=== PATIENT | female | born 1950 | race Caucasian/White ===

== ENCOUNTER 2017-03-06 03:54 | Emergency (ER) | payer MEDICARE ==
[2017-03-06] MEDS ORDERED: DELTASONE PO ONE (08:14)
[2017-03-06] MEDS ORDERED: BOOSTRIX IM ONE (08:14)
--- NOTE | 2017-03-06 08:19 | Emergency Department Report ---
ED General Adult HPI - General Chief complaint: Skin Rash Stated complaint: BLISTER ON LF ANKLE Time Seen by Provider: 03/06/17 08:05 Source: patient Mode of arrival: Ambulatory Limitations: No Limitations - History of Present Illness Initial comments: PT states 2 months ago, she had broken out in some blisters on her R foot, left foot and ankle and R hand. PT states she was seen at Urgent care and given bactrim and zrytec. PT states she was told to go to a cream dipper. PT has not followed up yet. PT states that she has been itching again for 2 weeks. PT states she had a blister on her L ankle that popped and now the site is swollen. PT states she woke up this morning and had a rash but the rash resolved. PT states no close contacts have a rash but she thinks this may be related to her best friend's dog. PT states the itching/ rash is always present and at it's worst after she is around the dog. pt denies flea or tick bites. MD Complaint: itching/rash Onset/Timin -: Gradual, week(s) Location: left, right, upper extremity, lower extremity Severity scale (0 -10): 3 Consistency: constant Improves with: none Worsens with: other (being around dog ) Associated Symptoms: denies other symptoms. denies: cough, nausea/vomiting, shortness of breath - Related Data Previous Rx's Medication Instructions Recorded Last Taken Type Cephalexin [Keflex] 500 mg PO Q6HR #40 capsule 03/06/17 Unknown Rx Sulfamethoxazole/Trimethoprim 1 each PO BID #20 tablet 03/06/17 Unknown Rx [Bactrim DS TAB] hydrOXYzine PAMOATE [Vistaril] 25 mg PO Q6HR PRN #12 capsule 03/06/17 Unknown Rx Allergies Allergy/AdvReac Type Severity Reaction Status Date / Time No Known Allergies Allergy Verified 03/06/17 04:11 ED Review of Systems ROS: Stated complaint: BLISTER ON LF ANKLE Other details as noted in HPI Comment: All other systems reviewed and negative Constitutional: denies: fever Respiratory: denies: cough Musculoskeletal: joint swelling (atraumatic ) Skin: rash, pruritus ED Past Medical Hx - Past Medical History Previous Medical History?: Yes Hx Hypertension: Yes - Surgical History Past Surgical History?: No - Social History Smoking Status: Current Every Day Smoker Substance Use Type: Alcohol - Medications Home Medications: Home Medications Medication Instructions Recorded Confirmed Last Taken Type Cephalexin [Keflex] 500 mg PO Q6HR #40 capsule 03/06/17 Unknown Rx Sulfamethoxazole/Trimethoprim 1 each PO BID #20 tablet 03/06/17 Unknown Rx [Bactrim DS TAB] hydrOXYzine PAMOATE [Vistaril] 25 mg PO Q6HR PRN #12 capsule 03/06/17 Unknown Rx ED Physical Exam - General Limitations: No Limitations General appearance: alert, in no apparent distress - Head Head exam: Present: atraumatic, normocephalic, normal inspection - ENT ENT exam: Present: normal exam, normal external ear exam - Neck Neck exam: Present: normal inspection, full ROM - Respiratory Respiratory exam: Present: normal lung sounds bilaterally. Absent: respiratory distress, chest wall tenderness - Cardiovascular Cardiovascular Exam: Present: regular rate, normal rhythm, normal heart sounds - GI/Abdominal GI/Abdominal exam: Present: soft - Extremities Exam Extremities exam: Present: normal capillary refill. Absent: pedal edema, calf tenderness - Expanded Lower Extremity Exam Left Knee exam: Present: normal inspection Lower Leg exam: Present: normal inspection, full ROM. Absent: tenderness, swelling Ankle exam: Present: full ROM, swelling (medial ankle has small scab with surrounding edema and mild erythema ). Absent: tenderness, laceration, ecchymosis - Back Exam Back exam: Present: normal inspection, full ROM - Neurological Exam Neurological exam: Present: alert, oriented X3, normal gait - Psychiatric Psychiatric exam: Present: normal affect, normal mood - Skin Skin exam: Present: warm, dry, erythema (mild), other (no rash to palms of hands or soles of feet). Absent: intact (pt has scabbed areas to L foot, L ankle, R hand. PT states the areas were blisters, no vesicles noted. ), rash, vesicles, ecchymosis ED Course Vital Signs 03/06/17 03/06/17 04:05 08:42 Temperature 97.9 F Pulse Rate 87 76 Respiratory 18 16 Rate Blood Pressure 150/91 162/86 [Right] O2 Sat by Pulse 99 96 Oximetry - Reevaluation(s) Reevaluation #1: 03/06/17 08:21 PT aware she will need to follow up with [facility] as previously instructed. PT advised to refrain from scratching as this can lead to skin trauma and cause infection. PT verbalizes understanding. PT also advised to avoid known triggers to itching and rash ( dog) - Pulse Oximetry Interpretation Digit-Finger Initial Pulse Oximetry Readin Actions Taken: none ED Medical Decision Making - Medical Decision Making PT c/o intermittent blisters and itching x 2 months. Seen at and given Bactrim and Zyrtec 2 months ago. PT states she was around her best friend's dog on Saturday and her itching worsened on Saturday. PT aware she will need to follow up with derm. Will update pt's TDap due to the fact she has multiple areas of broken skin. Will RX vistaril for itching and Bactrim/ Keflex for early cellulites to L ankle. One dose of prednisone given in ED for her itching. - Differential Diagnosis insect bite, urticiaria, cellulitis, allergy Critical Care Time: No Critical care attestation.: If time is entered above; I have spent that time in minutes in the direct care of this critically ill patient, excluding procedure time. ED Disposition Clinical Impression: Itching, Cellulitis of left ankle, Need for Tdap vaccination Disposition: DISCHARGED TO HOME OR SELFCARE Is pt being admited?: No Does the pt Need Aspirin: No Condition: Stable Instructions: Cellulitis (ED), Acute Rash (ED) Additional Instructions: Avoid dogs, as they tend to make your symptoms worse Follow up with [facility] Resource Specialist as previously instructed. No driving or ETOH after taking Vistaril finish all antibiotics Prescriptions: Cephalexin [Keflex] 500 mg PO Q6HR #40 capsule hydrOXYzine PAMOATE [Vistaril] 25 mg PO Q6HR PRN #12 capsule PRN Reason: Itching Sulfamethoxazole/Trimethoprim [Bactrim DS TAB] 1 each PO BID #20 tablet Referrals: DENIS SUAREZ MD [Primary Care Provider] - 3-5 Days Time of Disposition: 08:28
[2017-03-06 09:52] VITALS: BP 162/86
== END 2017-03-06 08:42 | disposition home or self-care (01) ==
LOC: ED 03:54
DX: L03.116 Cellulitis of left lower limb (principal); I10 Essential (primary) hypertension; F17.200 Nicotine dependence, unspecified, uncomplicated
CPT/HCPCS: 99282

== ENCOUNTER 2018-03-25 08:21 | Emergency (ER) | payer MEDICARE ==
[2018-03-25 09:32] LABS: Hematocrit 30.1 % (30.3-42.9); Hemoglobin 9.6 gm/dl (10.1-14.3); Mean Corpuscular HGB Conc 32 % (30-34); Mean Corpuscular Hemoglobin 29 pg (28-32); Mean Corpuscular Volume 92 fl (79-97); Platelet Count 565 K/mm3 (140-440); Red Blood Count 3.28 M/mm3 (3.65-5.03); Red Cell Distribution Width 35.5 % (13.2-15.2)
[2018-03-25 09:43] LABS: BUN/Creatinine Ratio 18; Blood Urea Nitrogen 9 mg/dL (7-17); Calcium 9.2 mg/dL (8.4-10.2); Hemolysis Index 5
[2018-03-25 10:29] LABS: Anisocytosis 3+; Hypochromasia 1+; Macrocytosis 1+; Platelet Estimate Consistent w Auto; Schistocytes Rare; Total Cells Counted 100
--- NOTE | 2018-03-25 10:47 | XRay Report ---
ROUTINE CHEST, TWO VIEWS: HISTORY: Shortness of breath. Mild cardiomegaly and pulmonary venous congestion are identified. The lungs are hyperinflated but clear. No evidence for pneumonia, pleural effusion or pneumothorax. IMPRESSION: Mild cardiomegaly and pulmonary venous congestion. COPD.
[2018-03-25] MEDS ORDERED: DUONEB *Not for PRN Use IH ONE ×2 (12:09→14:46)
[2018-03-25] MEDS ORDERED: DELTASONE PO ONE ×2 (12:10→14:37)
--- NOTE | 2018-03-25 12:18 | Emergency Department Report ---
HPI - General Chief Complaint: Dyspnea/Respdistress Time Seen by Provider: 03/25/18 12:03 - HPI HPI: 67-year-old female presents to the emergency department with complaint of 2 days of shortness of breath, dry cough and wheezing that she believes is an exacerbation of her COPD. She ran out of her albuterol inhaler. She also has a history of hypertension but she does not take any medication for it. Her primary care physician is Dr. Fabiana Goldstein but she does not have a fashion marketer. No recent travel or sick contacts at home. She denies any chest pain, fever, back pain, nausea, vomiting or diaphoresis. She has not taken anything for her symptoms prior presentation. She is not oxygen dependent at home. ED Past Medical Hx - Past Medical History Previous Medical History?: Yes Hx Hypertension: Yes (no meds) Hx COPD: Yes - Surgical History Past Surgical History?: No - Social History Smoking Status: Current Every Day Smoker Substance Use Type: Alcohol, Prescribed - Medications Home Medications: Home Medications Medication Instructions Recorded Confirmed Last Taken Type Cephalexin [Keflex] 500 mg PO Q6HR #40 capsule 03/06/17 Unknown Rx Sulfamethoxazole/Trimethoprim 1 each PO BID #20 tablet 03/06/17 Unknown Rx [Bactrim DS TAB] hydrOXYzine PAMOATE [Vistaril] 25 mg PO Q6HR PRN #12 capsule 03/06/17 Unknown Rx ALBUTEROL Inhaler [ProAir HFA 2 puff IH QID PRN #1 inhalation 03/25/18 Unknown Rx Inhaler] predniSONE [Deltasone] 20 mg PO QDAY #5 tab 03/25/18 Unknown Rx ED Review of Systems ROS: Stated complaint: COPD Other details as noted in HPI Comment: All other systems reviewed and negative Constitutional: denies: chills, fever Eyes: denies: eye pain, eye discharge, vision change ENT: denies: ear pain, throat pain Respiratory: cough, shortness of breath, wheezing Cardiovascular: denies: chest pain, edema Gastrointestinal: denies: abdominal pain, nausea, diarrhea Genitourinary: denies: urgency, dysuria, discharge Musculoskeletal: denies: back pain, joint swelling, arthralgia Skin: denies: rash, lesions Neurological: denies: headache, weakness, paresthesias Physical Exam - Physical Exam Vital Signs: Vital Signs 03/25/18 08:47 Temperature 97.2 F L Pulse Rate 90 Respiratory 20 Rate Blood Pressure 165/90 O2 Sat by Pulse 91 Oximetry Physical Exam: GENERAL: The patient is well-developed well-nourished. HENT: Normocephalic. Atraumatic. Patient has moist mucous membranes. EYES: Extraocular motions are intact. Pupils equal reactive to light bilaterally. NECK: Supple. Trachea is midline. CHEST/LUNGS: Mild wheezing throughout the chest. An occasional dry cough heard. No tachypnea or accessory muscle use. There is no respiratory distress noted. HEART/CARDIOVASCULAR: Regular. There is no tachycardia. There is no murmur. ABDOMEN: Abdomen is soft, nontender. Patient has normal bowel sounds. There is no abdominal distention. SKIN: Skin is warm and dry. NEURO: The patient is awake, alert, and oriented. The patient is cooperative. The patient has no focal neurologic deficits. The patient has normal speech. MUSCULOSKELETAL: There is no tenderness or deformity. There is no limitation range of motion. There is no evidence of acute injury. ED Course Vital Signs 03/25/18 08:47 Temperature 97.2 F L Pulse Rate 90 Respiratory 20 Rate Blood Pressure 165/90 O2 Sat by Pulse 91 Oximetry - Pulse Oximetry Interpretation Digit-Finger Initial Pulse Oximetry Readin O2 Sat by Pulse Oximetry: 91 Actions Taken: increased FIO2 to (2 L nasal cannula) ED Medical Decision Making - Lab Data Result diagrams: 03/25/18 09:14 03/25/18 09:12 - EKG Data -: EKG Interpreted by Me EKG shows normal: sinus rhythm, axis, intervals, QRS complexes (LVH), ST-T waves (mild T-wave inversions to the inferior leads) Rate: normal - EKG Data When compared to previous EKG there are: previous EKG unavailable Interpretation: other (sinus rhythm, LVH, T-wave inversions to the inferior leads) - Radiology Data Radiology results: report reviewed, image reviewed interpreted by me: Chest x-ray shows some hyperinflation of the lungs. Mild pulmonary vascular congestion. No pleural effusions and no obvious pneumonia. CTA CHEST: HISTORY: Shortness of breath, elevated d-dimer. COMPARISON: none. TECHNIQUE: Helical CT in 1.25mm intervals following IV contrast. Pulmonary embolus protocol. Sagittal and coronal reformatted images. Rotational MIP images. FINDINGS: Contrast bolus is suboptimal. Nearly all of the IV contrast is in the aorta. Pulmonary embolus cannot be excluded. No large central pulmonary embolus is suspected. Thyroid gland: The left thyroid lobe is mildly enlarged. An approximate 2.5 cm heterogeneous nodule is identified in the inferior left thyroid lobe. Tracheobronchial tree: Normal. Esophagus: Normal. Heart: Mild cardiomegaly is evident. Pericardium: Normal. Mediastinum: Minimal aortic calcifications. No mediastinal mass or bulky adenopathy. Lung Zamora: The lungs are adequately aerated. No evidence for advanced parenchymal disease, infiltrate or mass. Pleural Spaces: Normal. Musculoskeletal: Within normal limits. IMPRESSION: Suboptimal examination to evaluate for PE. Mild cardiomegaly. Lungs clear. Transcribed By: TTR Dictated By: MARGOT VIRGEN JR, MD Electronically Authenticated By: MARGOT VIRGEN JR, MD Signed Date/Time: 03/25/18 1421 - Medical Decision Making Patient presents with a few days of some shortness of breath, wheezing, bronchospasm and believes it is a COPD exacerbation. Chest x-ray does not show any obvious pneumonia, pleural effusions or pneumothorax. Labs show some anemia with a hemoglobin of about 9.5 that is normocytic, she has a BNP of about 500 and she has a slightly elevated and equivocal d-dimer. A CT scan of the chest was done with angiography that does not show any obvious central pulmonary embolus but was a suboptimal examination. However the d-dimer level was very low given the patient's age, she does not have any tachypnea, tachycardia or any complaints of chest pain. EKG does not show any ST elevation IA or dysrhythmia. She had negative troponins 2. The patient was given steroids and a breathing treatment here. Upon reevaluation she says she is feeling much better. The patient appears improved and is asking for discharge home. She has been encouraged to follow up with her primary care physician in the next few days and has also been given a referral for pulmonology. We discussed smoking cessation. She will go home with an albuterol inhaler refill and a five-day course of steroids. She was instructed to return to the emergency department immediately with any worsening of her symptoms, development of chest pain, or with any acute distress. She understands and agrees to the plan. - Differential Diagnosis COPD, bronchitis, PE, pneumonia, CHF Critical Care Time: No Critical care attestation.: If time is entered above; I have spent that time in minutes in the direct care of this critically ill patient, excluding procedure time. ED Disposition Clinical Impression: Tobacco use disorder, COPD exacerbation Hypertension Qualifiers: Hypertension type: essential hypertension Qualified Code(s): I10 - Essential ( primary) hypertension Anemia Qualifiers: Anemia type: unspecified type Qualified Code(s): D64.9 - Anemia, unspecified Disposition: TO HOME OR SELFCARE Is pt being admited?: No Condition: Stable Instructions: How to Stop Smoking (ED), Chronic Obstructive Pulmonary Disease ( ED), Hypertension (ED) Additional Instructions: Please follow up with your primary care physician in the next few days. I have also given you a referral for a local fashion marketer to follow-up regarding your COPD. Return to the emergency Department with any worsening of your symptoms or any acute distress. Prescriptions: ALBUTEROL Inhaler [ProAir HFA Inhaler] 2 puff IH QID PRN #1 inhalation PRN Reason: Shortness Of Breath predniSONE [Deltasone] 20 mg PO QDAY #5 tab Referrals: DENIS GOLDSTEIN MD [Primary Care Provider] - 3-5 Days DEN WALL MD [Staff Physician] - 3-5 Days Time of Disposition: 16:17
--- NOTE | 2018-03-25 14:38 | Cat Scan Report ---
CTA CHEST: HISTORY: Shortness of breath, elevated d-dimer. COMPARISON: none. TECHNIQUE: Helical CT in 1.25mm intervals following IV contrast. Pulmonary embolus protocol. Sagittal and coronal reformatted images. Rotational MIP images. FINDINGS: Contrast bolus is suboptimal. Nearly all of the IV contrast is in the aorta. Pulmonary embolus cannot be excluded. No large central pulmonary embolus is suspected. Thyroid gland: The left thyroid lobe is mildly enlarged. An approximate 2.5 cm heterogeneous nodule is identified in the inferior left thyroid lobe. Tracheobronchial tree: Normal. Esophagus: Normal. Heart: Mild cardiomegaly is evident. Pericardium: Normal. Mediastinum: Minimal aortic calcifications. No mediastinal mass or bulky adenopathy. Lung Zamora: The lungs are adequately aerated. No evidence for advanced parenchymal disease, infiltrate or mass. Pleural Spaces: Normal. Musculoskeletal: Within normal limits. IMPRESSION: Suboptimal examination to evaluate for PE. Mild cardiomegaly. Lungs clear.
[2018-03-25 16:15] VITALS: BP 154/77
== END 2018-03-25 16:45 | disposition home or self-care (01) ==
LOC: ED 08:21
DX: J44.1 Chronic obstructive pulmonary disease with (acute) exacerbation (principal); I10 Essential (primary) hypertension; D64.9 Anemia, unspecified; F17.200 Nicotine dependence, unspecified, uncomplicated
CPT/HCPCS: 36415; 71046; 71275; 80048; 83880; 84484; 85007; 85025; 85379; 93005; 93010; 94640; 99285; J7512; Q9967